=== PATIENT | male | born 1940 | race Caucasian/White ===

== ENCOUNTER 2016-10-24 19:28 | Emergency (ER) | payer MEDICARE, BC ==
[~2016-10-24] VITALS: Ht 172.7 cm; Wt 72.7 kg
[2016-10-24 19:32] VITALS: TEMP 98.1
[2016-10-24] MEDS ORDERED: PRILOSEC 20MG20 MG PO (19:47)
[2016-10-24 19:56] LABS: BASO % 0.5 % (0.0-2.0); EOS # 0.2 (0.0-0.7); EOS % 2.3 % (0-4.0); GRAN # 5.2 (1.4-6.5); GRAN % 62.2 % (42.2-75.2); HEMATOCRIT 44.4 % (42.0-52.0); LYMPH # 2.1 (1.2-3.4); LYMPH % 24.8 % (20.0-51.0); MEAN CELL VOLUME 88 fl (80.0-100.0); MEAN CORPUSCULAR HEMOGLOBIN 30 pg (27.0-31.0); MEAN CORPUSCULAR HGB CONC 34 g/dl (33.0-37.0); MEAN PLATELET VOLUME 10.4 fl (7.4-10.4); MONO # 0.8 (0.1-0.6); PLATELET COUNT 194 K/mm3 (130-400); RED BLOOD COUNT 5.03 M/mm3 (4.20-5.60); REDCELL DISTRIBUTION WIDTH-CV 13.2 % (11.5-14.5); WHITE BLOOD COUNT 8.4 K/mm3 (4.8-10.8)
[2016-10-24 20:03] LABS: PROTHROMBIN TIME 10.8 SECONDS (9.7-12.8)
[2016-10-24 20:06] LABS: PARTIAL THROMBOPLASTIN TIME 29.6 SECONDS (26.0-37.0)
[2016-10-24 20:11] LABS: ADJUSTED CALCIUM 9.2 mg/dL (8.4-10.2); ALANINE AMINOTRANSFERASE 41 U/L (21-72); ALKALINE PHOSPHATASE 73 U/L (50-136); ANION GAP 11 mmol/L (7-16); BILIRUBIN,TOTAL 0.8 mg/dL (0.0-1.0); BLOOD UREA NITROGEN 19 mg/dL (9-20); CALCIUM 9.2 mg/dL (8.4-10.2); CARBON DIOXIDE 24 mmol/L (22-30); CHLORIDE 105 mmol/L (98-107); CREATININE, serum 1.17 mg/dL (0.66-1.25); GLUCOSE 103 mg/dL (74-106); POTASSIUM 4.4 mmol/L (3.4-5.0); SODIUM 140 mmol/L (137-145); TOTAL PROTEIN 6.9 gm/dL (6.4-8.2)
[2016-10-24 20:25] LABS: TROPONIN-I < 0.012 ng/mL (0.000-0.034)
[2016-10-24 22:40] VITALS: BP 133/68; PULSE 68
== END 2016-10-24 22:40 | disposition home or self-care (01) ==
LOC: COL.ER 19:28 → EDBD 19:36 → COL.ER 22:40
PROVIDERS: Emergency Medicine
DX: R00.2 Palpitations (principal); K21.9 Gastro-esophageal reflux disease without esophagitis

== ENCOUNTER → 2016-11-06 | Outpatient (CLI) | payer MEDICARE, BC ==
[~2016-11-06] VITALS: Ht 172.7 cm; Wt 80.6 kg
[~2016-11-06] MED LIST: PRILOSEC 20MG20 MG PO
[2016-11-06 05:51] VITALS: BP 146/72; PULSE 70
== END ==
LOC: EDBD 05:32 → COL.CARD 05:32
DX: R00.2 Palpitations (principal)

== ENCOUNTER → 2016-11-11 | Outpatient (CLI) | payer MEDICARE, BC ==
[~2016-11-11] VITALS: Ht 172.7 cm; Wt 80.6 kg
[2016-11-11 06:02] VITALS: BP 149/71; PULSE 72
== END ==
LOC: COL.CARD 05:39
DX: R00.2 Palpitations (principal); M79.601 Pain in right arm; M79.602 Pain in left arm; R07.89 Other chest pain
CPT/HCPCS: A9502

== ENCOUNTER 2020-08-03 13:55 | Outpatient (CLI) | payer MEDICARE, BC ==
[2020-08-03] VITALS (10 sets, daily range): BP systolic 120–140; BP diastolic 64–78; PULSE 62–75; TEMP 97.1–97.4
[~2020-08-03] VITALS: Ht 172.7 cm; Wt 76.3 kg
[~2020-08-03 13:55] MED LIST changes: +DIPROLENE AF GEL15GM TP; +EPA FISH OIL1 SGL PO; +FLOMAX 0.40.4 MG/CAP PO; +PRESERVISION1 SGL PO
--- NOTE | 2020-08-03 16:10 | NUR ---
Pt tolerated infusion without issue. IV DC'd with catheter intact, bleeding controlled at site. Pt is escorted out of building by staff, gait steady.
== END 2020-08-03 16:10 | disposition home or self-care (01) ==
LOC: EUO 13:55
DX: U07.1 COVID-19 (principal)
CPT/HCPCS: J7050